=== PATIENT | male | born 2005 | race Caucasian/White ===

== ENCOUNTER 2023-02-13 12:06 | Outpatient (CLI) | payer OTHER | END 2023-02-13 12:16 | disposition home or self-care (01) | LOC: RAD 12:06 | PROVIDERS: ATTEND Orthopaedic Surgery | DX: S62.646A Nondisplaced fracture of proximal phalanx of right little finger, initial encounter for closed fracture (principal) ==

== ENCOUNTER 2023-02-15 06:19 | Day surgery (SDC) | payer OTHER ==
[~2023-02-15] VITALS: Ht 182.9 cm; Wt 68.0 kg
== END 2023-02-15 09:30 | disposition home or self-care (01) ==
LOC: EDBD → EDSEX → CIR.AMB 06:19
PROVIDERS: ATTEND Orthopaedic Surgery
DX: S62.646A Nondisplaced fracture of proximal phalanx of right little finger, initial encounter for closed fracture (principal); Z53.8 Procedure and treatment not carried out for other reasons

== ENCOUNTER 2023-02-18 06:00 | Day surgery (SDC) | payer OTHER ==
[2023-02-18] MEDS ORDERED: TRAMADOL HCL50 MG PO (10:26)
== END 2023-02-18 12:30 | disposition home or self-care (01) ==
LOC: CIR.AMB 06:00
PROVIDERS: ATTEND Orthopaedic Surgery
DX: S62.616A Displaced fracture of proximal phalanx of right little finger, initial encounter for closed fracture (principal); Z20.822 Contact with and (suspected) exposure to COVID-19; I10 Essential (primary) hypertension

== ENCOUNTER → 2023-03-04 | Outpatient (CLI) | payer OTHER ==
[~2023-03-04] MED LIST: TRAMADOL HCL50 MG PO
== END | disposition home or self-care (01) ==
LOC: RAD 13:15
PROVIDERS: ATTEND Orthopaedic Surgery
DX: S62.646D Nondisplaced fracture of proximal phalanx of right little finger, subsequent encounter for fracture with routine healing (principal)